=== PATIENT | male | born 1955 | race Caucasian/White ===

== ENCOUNTER 2020-07-12 08:03 | Outpatient (REF) | payer BC, SELFPAY ==
--- NOTE | 2020-07-12 | PFT_ITS ---
FLOWS: FEV1 79% of predicted at 2.38 L. FVC 71% of predicted at 2.88 L. FEV1 to FVC ratio of 0.83. No bronchodilator response. LUNG VOLUMES: Total lung capacity 65% of predicted at 4.17 L. Residual volume 59% of predicted at 1.33 L. Slow vital capacity 67% of predicted at 2.84 L. Expiratory reserve volume 80% of predicted at 0.91 L. Diffusion capacity is severely decreased, diffusion capacity adjust to being moderately decreased after adjustment for alveolar ventilation. In comparison to pulmonary function test performed in November of 2019, FEV1 has increased by 0.27 L; FVC has increased by 0.30 L; total lung capacity is increased by 0.93 L; residual volume has increased by 0.65 L; slow vital capacity has increased by 0.27 L; expiratory reserve volume has been without significant changes; diffusion capacity has decreased by 2.58 mL/minute/mmHg. IMPRESSION: Moderate restrictive ventilatory defect with no bronchodilator response. Together with decreased diffusion capacity this suggests an underlying pulmonary parenchymal disease. Clinical correlation is advised. MD JIM Morrow/MOD[facility] / [id number]
== END 2020-07-12 08:04 | disposition home or self-care (01) ==
LOC: HO.RESP 08:03
PROVIDERS: PCP Internal Medicine; Visit Provider Hospitalist
DX: J84.10 Pulmonary fibrosis, unspecified (principal)
CPT/HCPCS: 94060; 94727; 94729